=== PATIENT | female | born 1945 | race Caucasian/White ===

== ENCOUNTER 2020-09-09 11:37 | Emergency (ER) | payer MEDICARE, OTHER ==
[~2020-09-09] VITALS: Ht 162.6 cm; Wt 66.2 kg
[~2020-09-09 11:37] MED LIST: ACEBUTOLOL HCL200 MG PO; BUPROPION HCL75 MG PO; ESCITALOPRAM OX20 MG PO; LISINOPRIL10 MG PO; VITAMIN D50000 UNI1 PO; ZETIA10 MG PO
[2020-09-09] MEDS ORDERED: ENDOCET 7.5-321 EACH PO (11:48)
[2020-09-09] MEDS ORDERED: CYCLOBENZAPRINE10 MG PO (11:48)
[2020-09-09] MEDS ORDERED: ACETAMINOPHEN-1 EAC1 PO (15:33)
--- NOTE | 2020-09-10 07:14 | EKG ---
[facility] [address] [facility] [place], [place] [address] Signed Normal sinus rhythm Normal ECG No previous ECGs available Confirmed by FRACISCO HUNT MD ([id number]) on 09/10/2020 7:14:26 AM Electronically Signed By: FRACISCO HUNT MD 09/10/20 0714 PATIENT NAME: GEORGES HERRERA IRAIS Electrocardiogram DATE OF : 47 PHYSICIAN: FRACISCO HUNT MD REPORT #: [id number] REPORT IS CONFIDENTIAL AND NOT TO BE RELEASED WITHOUT AUTHORIZATION
== END 2020-09-09 15:56 | disposition home or self-care (01) ==
LOC: ED 11:37
DX: S22.080A Wedge compression fracture of T11-T12 vertebra, initial encounter for closed fracture (principal); I10 Essential (primary) hypertension; Z87.891 Personal history of nicotine dependence; Z88.8 Allergy status to other drugs, medicaments and biological substances; Z91.018 Allergy to other foods; Z79.899 Other long term (current) drug therapy; Z79.891 Long term (current) use of opiate analgesic; W18.30XA Fall on same level, unspecified, initial encounter
CPT/HCPCS: 51701; 74176; 80053; 81001; 84484; 85025; 93005; 93010; 99284-25

== ENCOUNTER 2020-12-10 06:47 | Day surgery (SDC) | payer MEDICARE, OTHER ==
[~2020-12-10] VITALS: Ht 162.6 cm; Wt 64.1 kg
[~2020-12-10 06:47] MED LIST changes: +ACETAMINOPHEN-1 EAC1 PO; +ALLEGRA ALLERG180 MG PO; +BUDESONIDE-FO10.2 GM INH; +CALCITONIN-SAL3.7 ML NAS; +CYCLOBENZAPRINE10 MG PO; +ENDOCET 7.5-321 EACH PO; +FLONASE ALLERG9.9 ML; +SYMBICORT 80-10.2 GM INH; +ULTRAM50 MG PO; +VENTOLIN HFA18 GM INH; +VITAMIN D21250 MCG
--- NOTE | 2020-12-10 12:29 | NUR ---
12/10/20 1229 Sally Romero 1224 PATIENT ARRIVES TO PACU UNRESPONSIVE TO PAIN. RESP EVEN AND UNLABORED, MASK AT 6 LITERS.
[2020-12-10] MEDS ORDERED: OXYCODON-ACETA1 EAC2 PO (12:55)
[2020-12-10] MEDS ORDERED: ACETAMINOPHEN500 MG PO (12:55)
[2020-12-10] MEDS ORDERED: IBU-200200 MG PO (12:56)
--- NOTE | 2020-12-10 13:26 | NUR ---
1315: PT RETURNS TO UNIT VIA STRETCHER FROM PACU. AWAKE AND ALERT ON ARRIVAL. VSS, RESP EVEN AND UNLABORED ON RA. DENIES NAUSEA AND REPORTS TERRENCE PAIN LEVEL, 02/17. DENIES NEED FOR PAIN INTERVENTION AT THIS TIME. DRESSING C/D/I X2. TERRENCE PO INTAKE WELL. SCDS IN PLACE. POC DISCUSSED AND PT AGREEABLE. NO NEEDS VOICED, CALL LIGHT WITHIN REACH
--- NOTE | 2020-12-10 14:15 | NUR ---
1400: PT AWAKE AND ALERT IN STRETCHER. CONVERSES WITH AT THE BEDSIDE. VSS, RESP EVEN AND UNLABORED ON RA. DRESSING REMAINS C/D/I. CONTS TO DENY NAUSEA AND REPORTS TERRENCE PAIN LEVEL, 02/17. REPORTS URGE TO VOID. DANGLES AT THE BEDSIDE, TERRENCE WELL. DENIES DIZZINESS AND SOB. AMBULATES TO BR WITH STANDBY ASSIST FROM THIS RN. SUCCESSFUL POSTOP VOID, 1000MLS. BACK TO ROOM AND DRESSES SELF INDEPENDENTLY FOR DC
--- NOTE | 2020-12-10 14:39 | NUR ---
1415: DC INSTRUCTIONS PROVIDED AND DISCUSSED ORDERED. PAPER PRESCRIPTION PROVIDED TO PT. PT DENIES QUESTIONS AND CONCERNS AND VOICES UNDERSTANDING AT THIS TIME. SL REMOVED WITH CATH TIP INTACT AND PRESSURE APPLIED TO SITE, WNL. 1430: PT WHEELED OFF OF UNIT IN WC BY THIS RN. TRANSFERS INTO VEHICLE INDEPENDENTLY AND APPROPRIATELY. NO PHYSICAL S/S OF DISTRESS AT THIS TIME
--- NOTE | 2020-12-10 14:44 | OR ---
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 POSTOPERATIVE DIAGNOSES: 1. 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 2. Deep axillary sentinel lymph node negative on frozen pathology. PROCEDURES: 1. Injection of methylene blue dye for sentinel lymph node identification. 2. Right deep axillary sentinel lymph node biopsy. 3. Right partial mastectomy (needle localized). 4. Excision of additional margins including medial deep, lateral deep, and posterior deep margins. ANESTHESIA: General LMA; Christina Newton CRNA. INDICATIONS: This 75-year-old white woman is a patient of Kristian Farris and was found on mammogram to have abnormalities including microcalcifications in the right breast. She underwent core biopsy by image guidance by Dr. 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 There was no evidence of infiltrating ductal carcinoma. The films of the abnormality showed diffuse microcalcifications, but no actual mass. She has no family history of breast cancer that she is aware of. She did undergo excision of a non-small cell lung cancer by Dr. Munoz by a thorascopic approach in December of 2019. She is admitted at this time to undergo right needle localized partial breast excision (partial mastectomy) as well as right sentinel lymph node biopsy. She understands as does her the risks of bleeding, infection, recurrence, and a plan for radiation therapy postprocedure to diminish chances of local recurrence. She also understands that negative margins may not be assured on the initial excision and additional surgery may be required. Understanding of this, she wished to proceed. FINDINGS: Localization by wire technique was well positioned in juxtaposition to the marker within the breast parenchyma. Excision of the mass confirmed on radiographic specimens that Electronically Signed By: BRITTNEE WATTS MD 12/10/20 1444 PATIENT NAME: GEORGES HERRERA OPERATIVE REPORT DATE OF : 47 REPORT #: [id number] PHYSICIAN: BRITTNEE WATTS MD PCP: KRISTIAN FARRIS PAC REPORT IS CONFIDENTIAL AND NOT TO BE RELEASED WITHOUT AUTHORIZATION [facility] [address] [place], [place] [address] Signed the lesion was excised including the marker. As the excision size was somewhat close to the margin, additional breast tissue had been excised. This was guided more by the clinical texture of the breast parenchyma than the recommendation of the radiologist, but nevertheless additional margins in deep posterior aspect, deep lateral and deep medial aspect undertaken back to palpably normal breast tissue. As regards the sentinel lymph node, though she did undergo radionuclide injection by Dr. Estrada, there was very little radionuclide uptake to guide sentinel lymph node biopsy; however, methylene blue dye uptake was reasonable enough to identify a sentinel lymph node which had faint tracer uptake and blue dye uptake. There were no other lymph nodes noted in the axilla than that excised. Frozen pathology on that lymph node showed no evidence of metastatic disease. It is acknowledged that the chance of metastatic disease was relatively low of course. Cosmetic result was quite good with rearrangement of breast parenchyma. The excision size was reasonably large given the need for excision of tissue to palpably normal breast parenchyma. DESCRIPTION OF PROCEDURE: The patient was received from radiology suite with a wire emanating from the superior aspect of the right breast. Radionuclide imaging had been undertaken for sentinel lymph node identification as well. She was given a general anesthetic by LMA technique. Preoperative antibiotic Ancef was given. Sequential compression device stockings used and heparin subcutaneously administered. Interrogation of the right breast showed essentially no uptake into the axilla. I had reviewed the images and only faint uptake had been noted in that regard. There was good detection of radionuclide in the periareolar area indicating that the probe was certainly functional in every way. 2 mL of methylene blue dye was injected in the subepithelial space in the upper outer aspect of the right areola. She did undergo preparation of the right breast and axilla with Betadine-based solution, this area was draped sterilely. Mindful that there was essentially no benefit of the radionuclide injection, a transverse incision was made in an area typical for sentinel lymph node biopsy and dissection was carried through the subcutaneous tissue. Application of the probe into the depths of the wound was not particularly helpful. With various maneuvers, lymphatic blue dye was identified ultimately traced to a sentinel lymph node, which was firm, but rather small. This was excised and labeled as sentinel lymph node #1. Additional dissection with blunt and sharp technique was undertaken identifying blue Electronically Signed By: BRITTNEE WATTS MD 12/10/20 1444 PATIENT NAME: GEORGES HERRERA OPERATIVE REPORT DATE OF : 47 REPORT #: [id number] PHYSICIAN: BRITTNEE WATTS MD PCP: KRISTIAN FARRIS PAC REPORT IS CONFIDENTIAL AND NOT TO BE RELEASED WITHOUT AUTHORIZATION [address] [address] Signed lymphatics more proximal to the sentinel lymph node identified, but there was no sentinel lymph node along that tract. Additional dissection superiorly and medially identified no other sentinel lymph nodes. The wound was packed and plans made now for definitive excision of the neoplastic tissue. Stimulation of the right areolar was undertaken and the edge was marked with a blue pen. A curvilinear incision was made from the 9 o'clock to 1 o'clock position. Dissection carried through the dermis with electrocautery. A flap was elevated cephalad allowing for delivery of the wire, which emanated from the upper outer to central aspect of the breast. The wire was delivered into the wound and an Allis clamp was used to secure the parenchyma. Using meticulous care and electrocautery dissection, a cylindrical amount of tissue was dissected with the wire as a guidance to the depth of the breast. This emanated to the subareolar area or at least somewhat cephalad to that. Dissection in the depths did demonstrate granular parenchyma. Re-application of Allis clamp distally allow for wider excision deep toward the pectoralis in alignment with the wire. Wide resection had been undertaken down to the pectoralis itself. This was carefully explanted and oriented with a short stitch superiorly and long stitch lateral and a double stitch in the deepest portion. Palpation of the excision cavity showed suspicion in the medial deep aspect and to a less degree in lateral deep aspect. On that basis, both these areas were excised additionally probably 2 cm in width, excising all abnormal tissue. In the posterior deep aspect, additional excision was undertaken as there was a to the breast parenchyma as well. All of these additional specimens were marked appropriately. By this point, sentinel lymph node report had returned confirming no evidence of metastatic disease to the right axillary sentinel lymph node. Irrigation was undertaken in the depths of the breast wound. Hemostasis was assured with electrocautery. Breast parenchymal reapproximation was undertaken with interrupted 2-0 Vicryl filling in the rather sizable defect surprisingly well. The deep dermal layer was secured with interrupted 2-0 Vicryl and running subcuticular 3-0 Vicryl for the skin. Reexamination of the axilla showed no bleeding or other problems. The wound was closed with interrupted 2-0 Vicryl and a running subcuticular 3-0 Vicryl and the skin as well. Steri-Strips were applied to each wound as were Acticoat silver sponge dressings. The patient was ultimately extubated and transferred to the recovery room in good condition having suffered no complication. Sponge, needle, and instrument counts reported as correct x3. Electronically Signed By: BRITTNEE WATTS MD 12/10/20 1444 PATIENT NAME: GEORGES HERRERA [facility] OPERATIVE REPORT DATE OF : 47 REPORT #: [id number] PHYSICIAN: BRITTNEE WATTS MD PCP: KRISTIAN FARRIS PAC REPORT IS CONFIDENTIAL AND NOT TO BE RELEASED WITHOUT AUTHORIZATION [address] [address] Signed MD SIXTO Thomson/RODNEYL /[id number] cc: QUYNH Niño MD Dr. Wang Copies: FRACISCO CHAWLA MD ~ Electronically Signed By: BRITTNEE WATTS MD 12/10/20 1444 PATIENT NAME: GEORGES HERRERA IRAIS OPERATIVE REPORT DATE OF : 47 REPORT #: [id number] PHYSICIAN: BRITTNEE WATTS MD PCP: KRISTIAN FARRIS PAC REPORT IS CONFIDENTIAL AND NOT TO BE RELEASED WITHOUT AUTHORIZATION
--- NOTE | 2020-12-11 00:22 | OR ---
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 POSTOPERATIVE DIAGNOSES: 1. 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 2. Right axillary sentinel lymph node negative for metastatic disease. Dictation Ends Here MD SIXTO Thomson/RODNEYL /[id number] Copies: ~ Electronically Signed By: BRITTNEE WATTS MD 12/11/20 0022 PATIENT NAME: GEORGES HERRERA IRAIS OPERATIVE REPORT DATE OF : 47 REPORT #: [id number] PHYSICIAN: BRITTNEE WATTS MD PCP: KRISTIAN FARRIS PAC REPORT IS CONFIDENTIAL AND NOT TO BE RELEASED WITHOUT AUTHORIZATION
--- NOTE | 2020-12-13 15:09 | PATH ---
[facility] [address] [facility] [place], [place] [address] Signed SPECIMEN(S): A SENTINEL LYMPH NODE 1 SPECIMEN(S): B RIGHT BREAST MASS SPECIMEN(S): C MEDIAL DEEP MARGIN SPECIMEN(S): D LATERAL DEEP MARGIN SPECIMEN(S): E ADDITIONAL DEEP MARGIN SPECIMEN SOURCE: A. SENTINEL LYMPH NODE 1 B. RIGHT BREAST MASS C. MEDIAL DEEP MARGIN D. LATERAL DEEP MARGIN E. ADDITIONAL DEEP MARGIN CLINICAL HISTORY: Neoplasm of breast, right. Right breast lumpectomy with needle loc, sentinel lymph node biopsy, IOPC with possible axillary dissection. FROZEN SECTION DIAGNOSIS: A. [place] lymph node #1: - Negative for metastatic carcinoma. Dr. Lai notified at 1141 with read back. Albino Xiao M.D. 12/10/2020 1141 BRP:cml FINAL PATHOLOGIC DIAGNOSIS: A. Lymph node, sentinel #1, excision: - One lymph node, negative for metastatic carcinoma (0/1) B. Breast, right, lumpectomy: - Ductal carcinoma in situ with the following features: - Specimen size: 61 x 57 x 29 mm. - Specimen laterality: Right. - Tumor site: Central (per prior biopsy report). - Estimated size/extent of DCIS: 14 mm. - Histologic type: DCIS. - Architectural patterns: Cribriform, papillary. - Nuclear grade: Intermediate. - Necrosis: Not identified. - Margins: Uninvolved by DCIS. - Distance from closest margin: 2 mm, deep. - See parts C, D, and E for additional margins. - Microcalcifications: Present in DCIS. PATIENT NAME: NOA HERRERA PATHOLOGY DATE OF : 47 REPORT #: [id number] PHYSICIAN: [facility] PCP: KRISTIAN FARRIS PAC REPORT IS CONFIDENTIAL AND NOT TO BE RELEASED WITHOUT AUTHORIZATION [facility] [address] [place], [place] [address] Signed - Additional pathologic findings: None. - Estrogen and progesterone receptor studies: Please refer to studies previously performed (accession number [id number] which were reported as ER positive, FL positive. - Lymph nodes: Uninvolved by tumor cells. - Total number of lymph nodes examined: 1. - Number of sentinel lymph nodes examined: 1. - Surgical pathology stage: pTis (DCIS). C. Breast, "medial deep margin", excision: - Ductal carcinoma in situ, intermediate grade. - DCIS comes within 1 mm of the blue-inked and black-inked margins; see gross description and comment. D. Breast, "lateral deep margin", excision: - Ductal carcinoma in situ, intermediate grade. - DCIS involves the blue-inked surgical margin; see gross description and comment. - Additional pathologic findings: Usual ducal hyperplasia. E. Breast, "Additional deep margin", excision: - Benign breast tissue with usual ductal hyperplasia. COMMENT: A) An immunohistochemical stain for AE1/AE3 is performed and supports the above interpretation. C D) These specimens are received unoriented, and thus the anatomic orientation of the positive margin cannot be reported. Correlation with operative findings is needed. As part of [facility] Quality Improvement Program, this case was reviewed by another member of our pathology staff. BRP:NRT:cml:C1NR MICROSCOPIC EXAMINATION: Histologic sections of all submitted blocks are examined by light microscopy. These findings, together with the gross examination, support the pathologic diagnosis. GROSS DESCRIPTION: Five specimens are received in five containers, labeled "Noa Herrera." A. The specimen, labeled "Noa Herrera," and designated on the requisition "sentinel lymph node #1," is received fresh for frozen section diagnosis and consists of a 1.2 x 0.7 x 0.6 cm, yellow-lou possible lymph node. The specimen is entirely submitted for frozen section and PATIENT NAME: NOA HERRERA IRAIS PATHOLOGY DATE OF : 47 REPORT #: [id number] PHYSICIAN: OCTAVIO SCHAFER PCP: KRISTIAN FARRIS PAC REPORT IS CONFIDENTIAL AND NOT TO BE RELEASED WITHOUT AUTHORIZATION [facility] [address] [place], [place] [address] Signed resubmitted as received in cassette (A1). B. The specimen, labeled "Noa Herrera," and designated on the requisition "right breast mass," is received in formalin and consists of a 41 gram oriented portion of yellow-lou fibroadipose tissue that is 6.1 x 5.7 x 2.9 cm and has an inserted metal localization wire extending from one surface of the specimen. The specimen is oriented with a single long suture, 2 double sutures, and a single short suture. The specimen is inked as follows: Single long suture surface = red; surface opposite to single long suture = orange; single short suture surface = blue; surface opposite to single short suture = green; 2 double sutures surface = black; surface opposite to 2 double sutures = yellow. The specimen is sectioned from black ink to yellow ink into 12 slices to reveal an ill-defined, lou-white, indurated, 0.9 x 0.7 x 0.6 cm area that grossly appears to involve the red inked margin. The area is 0.4 cm from the orange inked margin, 0.7 cm black inked margin, 1.2 cm blue inked margin, 1.8 cm from the green inked margin, and 4.7 cm from the yellow inked margin. The remaining parenchyma is comprised of yellow fibrofatty and lou-white fibroglandular tissue without an additional discrete mass/lesion. Fibroglandular tissue comprises approximately less than 5% of the remaining parenchyma. Cassette summary: (B1-B3) slice 3 trisected (B4-B5) slice 2 bisected (B6) nearest blue inked margin to indurated area (slice 5) (B7) nearest yellow inked margin (slice 11) (B8) remaining parenchyma (slice 7) Cold ischemia time: Insufficient data to calculate. Approximate Formalin time: Between 6 and 72 hours. C. The specimen, labeled "Noa Herrera per requisition medial deep margin," is received in formalin and consists of a 8 g unoriented portion of yellow-lou fibroadipose tissue that is 5.7 x 3.2 x 1.6 cm. One surface is focally roughened, and inked blue. The opposite surface is yellow-lou, smooth and inked black. The specimen is serially sectioned perpendicular to the long axis into 12 slices, revealing a 1.6 x 1.0 x 0.7 cm indurated area that is focally congested and abuts the blue soft tissue resection margin. Approximately 95% of the remaining tissue is a yellow-lou greasy adipose tissue and 5% is a delicate fibrous tissue. The specimen is entirely submitted consecutively in cassettes (C1-C9), with the area of induration in cassettes PATIENT NAME: NOA HERRERA PATHOLOGY DATE OF : 47 REPORT #: [id number] PHYSICIAN: OCT[facility]IO PATHOLOGY PCP: KRISTIAN FARRIS PAC REPORT IS CONFIDENTIAL AND NOT TO BE RELEASED WITHOUT AUTHORIZATION [facility] [address] [place], [place] [address] Signed (C4-C6). Cold ischemia time: Insufficient data to calculate. Approximate Formalin time: 20-28 hours. D. The specimen, labeled "Noa Herrera," and designated on the requisition "lateral deep margin," is received in formalin and consists of a 16 g, unoriented portion of yellow-lou fibroadipose tissue that is a 5.1 x 4.2 x 2.0 cm. The specimen is inked blue and serially sectioned perpendicular to the long axis into 11 slices, revealing approximately 90% of the specimen is yellow-lou greasy adipose tissue and 10% is a pink rubbery fibrous tissue. No discrete mass lesions are grossly identified. The specimen is entirely submitted consecutively in (D1-D13), with bisected cross-sections in D3, D4, D5, D6, D7-D8, D9-D10, D11, D12-D13. Cold ischemia time: Insufficient data to calculate. Approximate Formalin time: 20-28 hours. E. The specimen, labeled "Noa Herrera," and designated on the requisition "additional deep margin," is received in formalin and consists of a10 g, unoriented portion of yellow-lou fibroadipose tissue that is 4.1 x 3.5 x 2.7 cm. A lou suture is present along one aspect. The surface is inked blue and the remainder of the specimen is inked black. The specimen is serially sectioned perpendicular to the long axis, revealing approximately 90% of the tissue is a yellow-lou greasy adipose tissue and 10% a pale pink delicate fibrous tissue and hemorrhagic soft tissue. No discrete mass lesions are grossly identified. The specimen is entirely submitted consecutively in cassettes (E1-E9). Cold ischemia time: Insufficient data to calculate. Approximate Formalin time: 20-28 hours. FB (under the direct supervision of a pathologist) NOTE: Part B is grossed by AI on 12/12/20 13:40 PERFORMING LABORATORY: The technical component was performed by [facility], [address] [place] [id number] (Showcase Trimmer: Fadia Burgos MD; CLIA# [id number]). The frozen section was performed by [place] [address] (CLIA# [id number]). Professional interpretation was performed by [facility], [address] [place] [address] (CLIA# [id number]). PATIENT NAME: NOA HERRERA PATHOLOGY DATE OF : 47 REPORT #: [id number] PHYSICIAN: OCTAVIO SCHAFER PCP: KRISTIAN FARRIS PAC REPORT IS CONFIDENTIAL AND NOT TO BE RELEASED WITHOUT AUTHORIZATION [place] [address] Signed Diagnostician: Albino Xiao MD Pathologist Electronically Signed 12/13/2020 Copies: ~ PATIENT NAME: NOA HERRERA IRAIS PATHOLOGY DATE OF : 47 REPORT #: [id number] PHYSICIAN: OCT[facility]IO PATHOLOGY PCP: KIRSTIAN FARRIS PAC REPORT IS CONFIDENTIAL AND NOT TO BE RELEASED WITHOUT AUTHORIZATION
== END 2020-12-10 14:30 | disposition home or self-care (01) ==
LOC: DS 06:47 → EDSTATUS 08:00 → NUC 08:00 → DS 14:30
PROVIDERS: ATTEND Surgery
PROC: 0HBT0ZZ Excision of Right Breast, Open Approach (ICD-10-PCS; principal; 2020-12-10 11:00)
PROC: 07B50ZX Excision of Right Axillary Lymphatic, Open Approach, Diagnostic (ICD-10-PCS; 2020-12-10 11:00)
DX: D05.11 Intraductal carcinoma in situ of right breast (principal); I10 Essential (primary) hypertension; J45.909 Unspecified asthma, uncomplicated; K21.00 Gastro-esophageal reflux disease with esophagitis, without bleeding; Z88.8 Allergy status to other drugs, medicaments and biological substances; Z85.118 Personal history of other malignant neoplasm of bronchus and lung
CPT/HCPCS: 00404; 19281; 76098; 78195; A9541; J0690; J1100; J1644; J1885; J2001; J2250; J2300; J2405; J2704; J7121; Q9968